=== PATIENT | female | born 1985 | race Asian ===

== ENCOUNTER 2019-10-16 12:28 | Emergency (ER) | payer MEDICAID, MEDICARE, OTHER ==
[~2019-10-16] VITALS: Ht 152.4 cm; Wt 64.0 kg
[~2019-10-16 12:28] MED LIST: PREN-66 PO
[2019-10-16] MEDS ORDERED: ACETAMINOPHEN 500 MG TABLET PO ONE (13:30)
[2019-10-16 14:30] VITALS: BP 117/78
[2019-10-16] MEDS ORDERED: LIDOCAINE 1%/EPI 1:200,000/PF 10 ML VIAL INJ ONE (14:30)
[2019-10-16] MEDS ORDERED: LIDOCAINE 1%/EPI 1:200,000/PF 30 ML VIAL INJ ONE (15:15)
[2019-10-16] MEDS ORDERED: HYDROGEN PEROXIDE 118 ML SOLUTION TP ONE (15:45)
== END 2019-10-16 15:58 | disposition home or self-care (01) ==
LOC: EMS 12:31
DX: S01.01XA Laceration without foreign body of scalp, initial encounter (principal); R07.89 Other chest pain; R03.0 Elevated blood-pressure reading, without diagnosis of hypertension; M54.2 Cervicalgia; Z88.1 Allergy status to other antibiotic agents; Z88.0 Allergy status to penicillin; V49.88XA Car occupant (driver) (passenger) injured in other specified transport accidents, initial encounter; Y93.89 Activity, other specified; Y92.488 Other paved roadways as the place of occurrence of the external cause; Y99.8 Other external cause status
CPT/HCPCS: 12002; 70450; 71046; 72125; 99284; J3490